=== PATIENT | male | born 1950 | race Two or more races ===

== ENCOUNTER → 2024-06-06 | Outpatient (CLI) | payer BC, OTHER, SELFPAY ==
--- NOTE | 2024-06-06 10:36 | XR_ITS ---
Examination: PA lateral chest 2 views TECHNIQUE: Upright PA lateral chest 2 views Exam date and time: June 06, 2024 1052 hours Comparison February 04, 2014 INDICATIONS: Onset shortness of breath today. FINDINGS: Extensive bilateral pulmonary fibrosis pattern Normal heart size Severe osteopenia Probable parenchymal scarring in the lingular segment IMPRESSION: Extensive bilateral pulmonary fibrosis Consider repeat high resolution CT chest without contrast to compare with the March 05, 2023 exam
[2024-06-06 12:01] LABS: Basophils % (Auto) 0 % (0-2.5); Eosinophils # (Auto) 0.3 Thou/mm3 (0.0-0.5); Eosinophils % (Auto) 3 % (0-10); Hematocrit 42.4 % (41.0-53.0); Hemoglobin 13.7 g/dL (13.5-16.0); Immature Granulocytes % (Auto) 0 % (0-0); Immature Granulocytes Auto 0.04 Thou/mm3 (0.00-0.00); Lymphocytes # (Auto) 1.9 Thou/mm3 (1.0-4.8); Lymphocytes % (Auto) 21 % (10-50); Mean Corpuscular HGB Conc 32.3 g/dl (31.0-37.0); Mean Corpuscular Hemoglobin 27.8 pg (25.0-35.0); Mean Corpuscular Volume 86 fL (80-100); Monocytes # (Auto) 0.7 Thou/mm3 (0.0-0.8); Monocytes % (Auto) 8 % (0-12); Neutrophils # (Auto) 6.2 Thou/mm3 (1.8-7.7); Neutrophils % (Auto) 68 % (37-80); Nucleated Red Blood Cell % 0 /100 WBC (0); Platelet Count 379 Thou/mm3 (140-440); RDW Standard Deviation 42.7 fL (35.1-43.9); Red Blood Count 4.93 Miln/mm3 (4.50-5.90); White Blood Count 9.2 Thou/mm3 (3.8-10.6)
[2024-06-06 12:17] LABS: Alanine Aminotransferase 18 U/L (10-49); Albumin, Serum 4.6 gm/dL (3.4-4.8); Albumin/Globulin Ratio 1.9 (1.2-2.2); Alkaline Phosphatase 143 U/L (46-116); Anion Gap 5 (7-16); Aspartate Amino Transferase 22 U/L (0-34); BUN/Creatinine Ratio 21 Ratio (12-20); Bilirubin,Total 0.3 mg/dL (0.3-1.2); Blood Urea Nitrogen 15 mg/dL (9-23); Carbon Dioxide 33.6 mMol/L (20.0-31.0); Cardiac Risk Estimate 5.5 RATIO (4.0-6.7); Chloride 100 mMol/L (98-107); Cholesterol 182 mg/dL (132-200); Creatinine (Component) 0.7 mg/dL (0.6-1.3); Globulin 2.4 gm/dL (2.3-3.5); Glucose 84 mg/dL (74-106); HDL Cholesterol 33 mg/dL (40-60); LDL Cholesterol,Calculated 113 mg/dL (0-130); Osmolality,Calculated 277 (275-295); Sodium 139 mMol/L (136-145); Thyroid Stimulating Hormone 0.96 uIU/mL (0.55-4.78); Triglycerides 182 mg/dL (30-150); eGFR > 60 See Note
[2024-06-06 12:18] LABS: Vitamin D 25 Hydroxy Total 70.7 ng/mL (7.3-40.2)
[2024-06-06 12:22] LABS: Glucose Estimated Average 123 mg/dL (80-131); Hemoglobin A1C 5.9 % Hgb (4.8-6.0)
== END | disposition home or self-care (01) ==
LOC: CDIM 10:03 → COPL 10:59
PROVIDERS: PCP Family Medicine; Referring Provider Nurse Practitioner Family; Visit Provider Radiology Diagnostic Radiology
DX: J84.10 Pulmonary fibrosis, unspecified (principal); E03.9 Hypothyroidism, unspecified; I10 Essential (primary) hypertension; E78.5 Hyperlipidemia, unspecified; Z79.899 Other long term (current) drug therapy
CPT/HCPCS: 36415; 71046; 80053; 80061; 82306; 83036; 84443; 85025

== ENCOUNTER → 2024-06-30 | Outpatient (CLI) | payer OTHER, BC, SELFPAY ==
--- NOTE | 2024-06-30 11:00 | XR_ITS ---
Examination: CT chest with intravenous contrast 2-D sagittal and coronal reconstructions Exam date and time: June 30, 2024 1054 hours INDICATIONS: Coughing sputum production 8 months, pulmonary fibrosis pattern on CT chest March 05, 2023 CTDI:vol (mGy) 11.6 DLP: (mGycm) 381 Technique: Multiple axial sections of the thorax have been obtained. Sections have been obtained, 3 mm slice thickness. Mediastinal and lung density settings have been obtained. Intravenous contrast administered, 60 cc Isovue-[id number]. 2-D sagittal, coronal images obtained. Low dose protocols were performed. One or more of the following dose reduction techniques were used; automated exposure control, adjustment of the mA and/or KV according to patient size, use of iterative reconstruction technique. Findings: No thoracic aortic aneurysm dilatation or dissection No pulmonary artery emboli Again noted moderate bilateral pulmonary fibrosis pattern No interval pneumonia or pulmonary edema Small liver cysts and right renal cysts Severe osteopenia IMPRESSION: Again noted moderate bilateral pulmonary fibrosis pattern
== END | disposition home or self-care (01) ==
LOC: CCTX 10:45
PROVIDERS: Referring Provider Nurse Practitioner Family; Visit Provider Internal Medicine Clinical Cardiac Electrophysiology
DX: Z12.2 Encounter for screening for malignant neoplasm of respiratory organs (principal); R91.8 Other nonspecific abnormal finding of lung field
CPT/HCPCS: 71260; A4649; Q9967

== ENCOUNTER → 2024-07-28 | Outpatient (CLI) | payer OTHER, BC, SELFPAY ==
[2024-07-28 15:43] LABS: Basophils # (Auto) 0.1 Thou/mm3 (0.0-0.2); Basophils % (Auto) 1 % (0-2.5); Eosinophils # (Auto) 0.4 Thou/mm3 (0.0-0.5); Eosinophils % (Auto) 5 % (0-10); Hematocrit 39.8 % (41.0-53.0); Hemoglobin 12.7 g/dL (13.5-16.0); Immature Granulocytes % (Auto) 0 % (0-0); Immature Granulocytes Auto 0.03 Thou/mm3 (0.00-0.00); Lymphocytes # (Auto) 1.9 Thou/mm3 (1.0-4.8); Lymphocytes % (Auto) 20 % (10-50); Mean Corpuscular HGB Conc 31.9 g/dl (31.0-37.0); Mean Corpuscular Hemoglobin 27.9 pg (25.0-35.0); Mean Corpuscular Volume 88 fL (80-100); Monocytes # (Auto) 0.7 Thou/mm3 (0.0-0.8); Monocytes % (Auto) 7 % (0-12); Neutrophils # (Auto) 6.2 Thou/mm3 (1.8-7.7); Neutrophils % (Auto) 67 % (37-80); Nucleated Red Blood Cell % 0 /100 WBC (0); Platelet Count 366 Thou/mm3 (140-440); RDW Standard Deviation 44.2 fL (35.1-43.9); Red Blood Count 4.55 Miln/mm3 (4.50-5.90); White Blood Count 9.3 Thou/mm3 (3.8-10.6)
[2024-07-28 16:34] LABS: Amphetamine/Methamp Scrn,U Negative (Negative); Barbiturate Screen,Urine Negative (Negative); Benzodiazepines Screen,Urine Negative (Negative); Benzoylecgonine Screen, Ur Negative (Negative); Creatinine MALB Rnd Ur 103 mg/dL (30-125); Fentanyl Screen,Urine Negative (Negative); Microalbumin, Random Urine < 3 mg/L (0-300); Opiate Screen,Urine Positive (Negative); THC Screen,Urine Negative (Negative)
[2024-07-28 17:35] LABS: Alanine Aminotransferase 17 U/L (10-49); Albumin, Serum 4.4 gm/dL (3.4-4.8); Albumin/Globulin Ratio 1.8 (1.2-2.2); Alkaline Phosphatase 124 U/L (46-116); Anion Gap 7 (7-16); Aspartate Amino Transferase 24 U/L (0-34); BUN/Creatinine Ratio 23 Ratio (12-20); Bilirubin,Total 0.3 mg/dL (0.3-1.2); Blood Urea Nitrogen 16 mg/dL (9-23); Calcium 9.5 mg/dL (8.3-10.6); Calcium (Corrected) 9.5 mg/dL (8.5-10.1); Carbon Dioxide 33.2 mMol/L (20.0-31.0); Chloride 99 mMol/L (98-107); Creatinine (Component) 0.7 mg/dL (0.6-1.3); Globulin 2.4 gm/dL (2.3-3.5); Glucose 83 mg/dL (74-106); Osmolality,Calculated 277 (275-295); Potassium 3.9 mMol/L (3.4-5.1); Sodium 139 mMol/L (136-145); Thyroid Stimulating Hormone 0.78 uIU/mL (0.55-4.78); Total Protein 6.8 gm/dL (5.7-8.2); eGFR > 60 See Note
[2024-07-28 17:57] LABS: Cardiac Risk Estimate 4.9 RATIO (4.0-6.7); Cholesterol 171 mg/dL (132-200); HDL Cholesterol 35 mg/dL (40-60); LDL Cholesterol,Calculated 111 mg/dL (0-130); Triglycerides 124 mg/dL (30-150)
[2024-07-28 20:27] LABS: T4 (Thyroxine) 7.9 mcg/dL (4.5-10.9)
== END | disposition home or self-care (01) ==
LOC: COPL 13:45
PROVIDERS: PCP Family Medicine; Referring Provider Student in an Organized Health Care Education/Training Program; Visit Provider Student in an Organized Health Care Education/Training Program
DX: E03.9 Hypothyroidism, unspecified (principal); I10 Essential (primary) hypertension; Z12.5 Encounter for screening for malignant neoplasm of prostate; E78.5 Hyperlipidemia, unspecified; M54.12 Radiculopathy, cervical region; Z71.51 Drug abuse counseling and surveillance of drug abuser
CPT/HCPCS: 36415; 80053; 80061; 80307; 82043; 82570; 84153; 84436; 84443; 85025; G0103

== ENCOUNTER → 2024-08-24 | Outpatient (CLI) | payer BC, OTHER, SELFPAY ==
--- NOTE | 2024-08-24 12:31 | XR_ITS ---
Examination: Cervical spine 3 views Technique one AP lateral coned AP odontoid cervical spine 3 views Exam date and time: August 24, 2024 at 1246 hours INDICATIONS: Neck pain beginning one year ago. FINDINGS: Severe osteopenia Fusion of the facets diffusely and vertebral bodies No fracture The odontoid appears intact IMPRESSION: Fusion of the cervical vertebral body seen with ankylosing spondylitis
[2024-08-24 14:45] LABS: Glucose Estimated Average 117 mg/dL (80-131); Hemoglobin A1C 5.7 % Hgb (4.8-6.0)
== END | disposition home or self-care (01) ==
LOC: COPL 12:15
PROVIDERS: PCP Family Medicine; Referring Provider Nurse Practitioner Family; Visit Provider Radiology Diagnostic Radiology
DX: M45.2 Ankylosing spondylitis of cervical region (principal); I10 Essential (primary) hypertension
CPT/HCPCS: 36415; 72040; 83036

== ENCOUNTER → 2024-09-06 | Outpatient (CLI) | payer BC, OTHER, SELFPAY ==
--- NOTE | 2024-09-06 | XR_ITS ---
Examination: PA lateral chest 2 views Technique: Upright PA lateral chest 2 views Exam date and time: September 06, 2024 1114 hrs. Comparison June 06, 2024 Indications: Coughing one year. Findings: COPD with significant hyperexpansion. Parenchymal scarring in the right lung with volume loss Heart size normal No pneumonia or pulmonary edema. Impression: COPD Stable parenchymal scarring right lung Bronchiectasis No interval pneumonia or pulmonary edema.
== END | disposition home or self-care (01) ==
LOC: CDIM 10:28
PROVIDERS: PCP Family Medicine; Referring Provider Nurse Practitioner Family; Visit Provider Nurse Practitioner Family
DX: J44.9 Chronic obstructive pulmonary disease, unspecified (principal); R91.8 Other nonspecific abnormal finding of lung field; J47.9 Bronchiectasis, uncomplicated
CPT/HCPCS: 71046

== ENCOUNTER → 2024-10-04 | Outpatient (CLI) | payer BC, OTHER, SELFPAY ==
--- NOTE | 2024-10-04 08:00 | XR_ITS ---
Examination: CT chest, without intravenous contrast. Sagittal and coronal 2-D reconstructions. Exam date and time: October 04, 2024 0801 hours Comparison June 30, 2024 INDICATIONS: Smoking history 15 years congestion 3 months CTDI:vol (mGy) 8.28 DLP: (mGycm) 283 Technique: Multiple 3.0 mm axial sections of the chest to been obtained. Bone and lung density settings are obtained. Sagittal and coronal 2-D reconstructions have been obtained. Low dose protocols were performed. One or more of the following dose reduction techniques were used; automated exposure control, adjustment of the mA and/or KV according to patient size, use of iterative reconstruction technique. Findings: No thoracic aortic aneurysm dilatation Pulmonary artery segments are not enlarged No pathologic mediastinal lymphadenopathy Moderate bilateral pulmonary fibrosis with bronchiectasis in the right middle lobe 7 mm pulmonary nodule in the right lower lobe No visualized liver or splenic lesion No pancreatic mass IMPRESSION: Moderate bilateral pulmonary fibrosis Bronchiectasis right middle lobe Recommend continued 6 month follow-up CT chest without contrast to document stability of 7 mm pulmonary nodule in the right lower lobe
== END | disposition home or self-care (01) ==
LOC: CCTX 07:53
PROVIDERS: PCP Nurse Practitioner Family; Referring Provider Nurse Practitioner Family; Visit Provider Nurse Practitioner Family
DX: Z12.2 Encounter for screening for malignant neoplasm of respiratory organs (principal); J84.10 Pulmonary fibrosis, unspecified; J47.9 Bronchiectasis, uncomplicated; R91.1 Solitary pulmonary nodule
CPT/HCPCS: 71271

== ENCOUNTER → 2024-12-21 | Outpatient (CLI) | payer BC, OTHER, SELFPAY ==
[2024-12-21 11:51] LABS: Glucose Estimated Average 117 mg/dL (80-131); Hemoglobin A1C 5.7 % Hgb (4.8-6.0)
== END | disposition home or self-care (01) ==
PROVIDERS: PCP Family Medicine; Referring Provider Student in an Organized Health Care Education/Training Program; Visit Provider Nurse Practitioner Family
DX: R73.03 Prediabetes (principal)
CPT/HCPCS: 36415; 83036

== ENCOUNTER → 2024-12-26 | Outpatient (CLI) | payer BC, OTHER, SELFPAY ==
[2024-12-30 06:09] LABS: Fecal Globin Result NOT DETECTED (NOT DETECTED)
== END | disposition home or self-care (01) ==
LOC: SLDO 11:59
PROVIDERS: PCP Student in an Organized Health Care Education/Training Program; Referring Provider Student in an Organized Health Care Education/Training Program; Visit Provider Student in an Organized Health Care Education/Training Program
DX: Z12.5 Encounter for screening for malignant neoplasm of prostate (principal)
CPT/HCPCS: 82274; G0328

== ENCOUNTER → 2025-01-10 | Outpatient (CLI) | payer BC, OTHER, SELFPAY ==
[2025-01-10 12:13] LABS: Misc Send Out* See Sep Rpt
[2025-01-10 13:05] LABS: Free T4 (Free Thyroxine) 1.00 ng/dL (0.89-1.76); Thyroid Stimulating Hormone 5.18 uIU/mL (0.55-4.78)
[2025-01-17 06:41] LABS: Vitamin B1 (Thiamine)* 22 nmol/L (8-30)
[2025-01-19 06:28] LABS: Homocysteine* 8.2 umol/L (< OR = 15.2); Methylmalonic Acid, GC/MS/MS* 164 nmol/L (69-390); TSI, Thyroid Stimulating Ig* <89 % baseline (<140); Thyroglobulin Antibodies* <1 IU/mL (< OR = 1); Thyroid Peroxidase Antibodies* 2 IU/mL (<9); Thyrotropin-Binding Inhib Ig* <1.00 IU/L (< OR = 2.00); Zinc, Plasma* 63 mcg/dL (60-130)
== END | disposition home or self-care (01) ==
LOC: COPL 11:43
PROVIDERS: PCP Nurse Practitioner Family; Referring Provider Nurse Practitioner Family; Visit Provider Nurse Practitioner Family
DX: D51.3 Other dietary vitamin B12 deficiency anemia (principal); R53.83 Other fatigue; E03.9 Hypothyroidism, unspecified; E56.9 Vitamin deficiency, unspecified; E07.89 Other specified disorders of thyroid
CPT/HCPCS: 36415; 83090; 83519; 83921; 84425; 84439; 84443; 84445; 84590; 84630; 86376; 86800

== ENCOUNTER → 2025-01-12 | Outpatient (CLI) | payer BC, OTHER, SELFPAY | END | disposition home or self-care (01) | LOC: COPL 11:44 | PROVIDERS: PCP Nurse Practitioner Family; Referring Provider Nurse Practitioner Family; Visit Provider Nurse Practitioner Family | DX: D51.3 Other dietary vitamin B12 deficiency anemia (principal); R53.83 Other fatigue; E03.9 Hypothyroidism, unspecified; E56.9 Vitamin deficiency, unspecified | CPT/HCPCS: 36415; 84590 ==

== ENCOUNTER → 2025-01-19 | Outpatient (CLI) | payer BC, OTHER, SELFPAY ==
[2025-01-25 06:30] LABS: Vitamin A (Retinol)* 41 mcg/dL (38-98)
== END | disposition home or self-care (01) ==
PROVIDERS: PCP Nurse Practitioner Family; Referring Provider Nurse Practitioner Family; Visit Provider Nurse Practitioner Family
DX: D51.3 Other dietary vitamin B12 deficiency anemia (principal); E66.9 Obesity, unspecified; R53.83 Other fatigue
CPT/HCPCS: 36415; 84590

== ENCOUNTER → 2025-02-22 | Outpatient (CLI) | payer BC, OTHER, SELFPAY ==
[2025-02-22 10:53] LABS: Amylase 69 U/L (30-118); Lipase 26 U/L (12-53)
[2025-02-22 11:06] LABS: Carcinoembryonic Antigen 0.5 ng/mL (0.0-5.0)
[2025-02-27 06:51] LABS: CA 19-9 Antigen* 26 U/mL (<34); HCG Total,Male (Tumor Marker)* <5 mIU/mL (<5)
== END | disposition home or self-care (01) ==
PROVIDERS: PCP Nurse Practitioner Family; Referring Provider Nurse Practitioner Family; Visit Provider Nurse Practitioner Family
DX: R79.9 Abnormal finding of blood chemistry, unspecified (principal); R63.4 Abnormal weight loss; Z80.0 Family history of malignant neoplasm of digestive organs
CPT/HCPCS: 36415; 82150; 82378; 83690; 84702; 86301

== ENCOUNTER → 2025-04-07 | Outpatient (CLI) | payer BC, OTHER, SELFPAY ==
--- NOTE | 2025-04-07 11:19 | XR_ITS ---
Examination: PA lateral chest 2 views TECHNIQUE: Upright PA lateral chest 2 views Date and time: April 07, 2025, 1127 hours, comparison September 06, 2024 INDICATIONS: Shortness of breath beginning 6 months ago. FINDINGS: COPD with hyperexpansion Extensive bilateral parenchymal scarring Bronchitis versus bronchiectasis at the lung bases No pulmonary edema Normal heart size Severe osteopenia IMPRESSION: COPD Pulmonary fibrosis Bronchitis bronchiectasis in the lower lung zones and right middle lobe, please see the CT chest report October 04, 2024
== END | disposition home or self-care (01) ==
LOC: CDIM 10:54
PROVIDERS: PCP Family Medicine; Referring Provider Nurse Practitioner Family; Visit Provider Nurse Practitioner Family
DX: J44.9 Chronic obstructive pulmonary disease, unspecified (principal); J84.10 Pulmonary fibrosis, unspecified; J40 Bronchitis, not specified as acute or chronic
CPT/HCPCS: 71046

== ENCOUNTER → 2025-04-13 | Outpatient (CLI) | payer BC, OTHER, SELFPAY ==
[2025-04-13 09:21] LABS: Basophils # (Auto) 0.1 Thou/mm3 (0.0-0.2); Basophils % (Auto) 1 % (0-2.5); Eosinophils # (Auto) 0.6 Thou/mm3 (0.0-0.5); Eosinophils % (Auto) 7 % (0-10); Hematocrit 38.2 % (41.0-53.0); Hemoglobin 12.0 g/dL (13.5-16.0); Immature Granulocytes Auto 0.03 Thou/mm3 (0.00-0.00); Lymphocytes # (Auto) 1.3 Thou/mm3 (1.0-4.8); Lymphocytes % (Auto) 14 % (10-50); Mean Corpuscular HGB Conc 31.4 g/dl (31.0-37.0); Mean Corpuscular Hemoglobin 27.7 pg (25.0-35.0); Mean Corpuscular Volume 88 fL (80-100); Monocytes # (Auto) 0.6 Thou/mm3 (0.0-0.8); Monocytes % (Auto) 6 % (0-12); Neutrophils # (Auto) 6.3 Thou/mm3 (1.8-7.7); Neutrophils % (Auto) 71 % (37-80); Nucleated Red Blood Cell # 0.00 Thou/mm3 (0.00-0.00); Nucleated Red Blood Cell % 0 /100 WBC (0); Platelet Count 374 Thou/mm3 (140-440); RDW Standard Deviation 44.6 fL (35.1-43.9); Red Blood Count 4.33 Miln/mm3 (4.50-5.90); White Blood Count 8.9 Thou/mm3 (3.8-10.6)
[2025-04-13 09:33] LABS: Glucose Estimated Average 126 mg/dL (80-131); Hemoglobin A1C 6.0 % Hgb (4.8-6.0)
[2025-04-13 09:34] LABS: D-Dimer 518 ng/mL (<600)
[2025-04-13 09:35] LABS: B-Type Natriuretic Peptide < 20 pg/mL (0-100)
[2025-04-13 09:37] LABS: Alanine Aminotransferase 15 U/L (10-49); Albumin, Serum 4.3 gm/dL (3.4-4.8); Albumin/Globulin Ratio 1.7 (1.2-2.2); Alkaline Phosphatase 107 U/L (46-116); Anion Gap 7 (7-16); Aspartate Amino Transferase 21 U/L (0-34); BUN/Creatinine Ratio 17 Ratio (12-20); Bilirubin,Total 0.4 mg/dL (0.3-1.2); Blood Urea Nitrogen 12 mg/dL (9-23); Calcium 9.3 mg/dL (8.3-10.6); Calcium (Corrected) 9.3 mg/dL (8.5-10.1); Carbon Dioxide 33.7 mMol/L (20.0-31.0); Cardiac Risk Estimate 4.8 RATIO (4.0-6.7); Chloride 101 mMol/L (98-107); Cholesterol 168 mg/dL (132-200); Creatinine (Component) 0.7 mg/dL (0.6-1.3); Free T4 (Free Thyroxine) 1.29 ng/dL (0.89-1.76); Globulin 2.5 gm/dL (2.3-3.5); Glucose 100 mg/dL (74-106); HDL Cholesterol 35 mg/dL (40-60); LDL Cholesterol,Calculated 112 mg/dL (0-130); Osmolality,Calculated 282 (275-295); Potassium 4.2 mMol/L (3.4-5.1); Sodium 142 mMol/L (136-145); Thyroid Stimulating Hormone 1.05 uIU/mL (0.55-4.78); Total Protein 6.8 gm/dL (5.7-8.2); Triglycerides 107 mg/dL (30-150); eGFR > 60 See Note
[2025-04-13 10:33] LABS: Creatinine MALB Rnd Ur 74 mg/dL (30-125); Microalbumin, Random Urine < 3 mg/L (0-300)
== END | disposition home or self-care (01) ==
LOC: COPL 08:29
PROVIDERS: PCP Nurse Practitioner Family; Referring Provider Nurse Practitioner Family; Visit Provider Nurse Practitioner Family
DX: I10 Essential (primary) hypertension (principal); E03.9 Hypothyroidism, unspecified; R06.02 Shortness of breath; R07.89 Other chest pain
CPT/HCPCS: 36415; 80053; 80061; 82043; 82570; 83036; 83880; 84439; 84443; 85025; 85379

== ENCOUNTER → 2025-05-18 | Outpatient (CLI) | payer BC, OTHER, SELFPAY ==
--- NOTE | 2025-05-18 10:00 | XR_ITS ---
Examination: CT chest, without intravenous contrast. Sagittal and coronal 2-D reconstructions. Exam date and time: 05/18/2025, 9:30 a.m. INDICATION: Solitary pulmonary nodule COMPARISON: Chest CT 10/04/2024 CTDI:vol (mGy) 10.4 DLP: (mGycm) 365 Technique: Multiple 3.0 mm axial sections of the chest to been obtained. Bone and lung density settings are obtained. Sagittal and coronal 2-D reconstructions have been obtained. Low dose protocols were performed. One or more of the following dose reduction techniques were used; automated exposure control, adjustment of the mA and/or KV according to patient size, use of iterative reconstruction technique. Findings: Lack of intravenous contrast limits evaluation of solid organs, vasculature, and lymph nodes. Line/Tubes/Devices: None. Lungs and large airways: Patent central airways. Tracheobronchomegaly with diffuse bilateral bronchiectasis. Redemonstration of multifocal endobronchial opacities scattered throughout the lungs, as well as multifocal tree-in-bud opacities throughout both lungs as well although with bilateral midlung and lower lung zone predominance as before. Redemonstration of multifocal areas of scarring and architectural distortion, most pronounced in the perihilar right upper to midlung field and in the superior segment right lower lobe with cicatricial bronchiectasis also present. No lobar consolidation. The previously visualized dominant likely infectious/inflammatory nodule in the right lower lobe has resolved in the interim. There is no evidence for no suspicious dominant lung nodule or lung mass. Pleura: No pleural effusion or pneumothorax. Mediastinum and christian: No lymphadenopathy or other masses. Heart and great vessels: Heart size is within normal limits. No pericardial effusion. No thoracic aortic aneurysm. Redemonstration of aortic valve calcifications and scattered calcifications of the aorta and its branches including the coronary arteries, to a slight degree is at the origins of the subclavian arteries. Chest wall, lower neck, axillae: No lymphadenopathy, other mass or abnormal collection. Visualized Upper abdomen: No acute abnormalities or concerning focal lesions. Grossly stable hypodensities in the liver that likely represent cysts. No adrenal nodules. Musculoskeletal: Multifocal degenerative changes with otherwise no evidence for recent fracture or aggressive lesion. Changes of ankylosing spondylitis are reidentified. Diffuse osteopenia is also present. Stable sclerotic density in the anterior aspect of the T9 vertebral body most likely represents a bone island. Dextroscoliosis is present. IMPRESSION: Redemonstration of diffuse chronic bronchitis/bronchiolitis and bronchiectasis with multifocal endobronchial mucoid impaction and scarring. Interval resolution of previously visualized on the right lower lobe nodule. No new dominant suspicious lung nodules or masses. Chronic ancillary findings as above.
== END | disposition home or self-care (01) ==
LOC: CCTX 09:23
PROVIDERS: PCP Student in an Organized Health Care Education/Training Program; Referring Provider Student in an Organized Health Care Education/Training Program; Visit Provider Student in an Organized Health Care Education/Training Program
DX: J42 Unspecified chronic bronchitis (principal)
CPT/HCPCS: 71250